=== PATIENT | female | born 1970 | race Caucasian/White ===

== ENCOUNTER 2025-01-31 14:23 | Outpatient (AMB) | payer OTHER, SELFPAY ==
--- NOTE | 2025-01-31 14:25 | HO.NEPHOV ---
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 She is 54 years of age who underwent imaging studies for other reasons picked in left adrenal nodule. She has a diabetic. She has no history of hypertension, hypokalemia, palpitation, flushing , sweating or orthostatic symptoms. She does not have any weight loss, increased pigmentation. She has no family history of any adrenal disorders. She is a smoker but does not have cough, night sweats, hemoptysis or weight loss. She has undergone further imaging studies including MRI of the adrenal. [facility] Medical History (Updated 01/31/25 @ 14:53 by Aftab Oakley MD) Lumbago Positive hepatitis C antibody test Right carpal tunnel syndrome Left carpal tunnel syndrome Pelvic pain Constipation Breast pain, right Migraines Vulvar pruritus Tobacco dependence syndrome Plantar fasciitis Arthritis Obesity DM type 2 with diabetic peripheral neuropathy Asthma Abscess of skin Vitamin D deficiency Surgical History H/O tubal ligation H/O lithotripsy History of colposcopy H/O section Family History Mother Diabetes mellitus Father Diabetes mellitus Coronary artery disease Sister Coronary artery disease Brother Diabetes mellitus Hepatitis C HIV (human immunodeficiency virus infection) Social History (Updated 01/31/25 @ 14:26 by Perla Cool MA) Alcohol intake: never Patient Tobacco Use Status: Current everyday Tobacco user Review of Systems Const All systems reviewed & are unremarkable except as noted in HPI and below Physical Exam Vital Signs: Last Vital Signs Pulse 89 01/31/25 14:28 BP 112/66 01/31/25 14:28 Pulse Ox 97 01/31/25 14:28 Oxygen Delivery Method Room Air 01/31/25 14:28 BMI result Body Mass Index 26.5 Const General: comfortable and no acute distress Orientation/consciousness: patient oriented x3 HEENT Head: Yes normocephalic Mouth: Normal oral and palatal mucosa present Eyes EOM: EOMs intact bilaterally Neck Neck: Yes supple Resp Auscultation: clear to auscultation bilaterally Cardio Jugular venous distension: no JVD Rate: regular rate GI Palpation (GI): Soft to palpation Auscultation: normal bowel sounds General: Yes no CVA tenderness Back/Spine/Pelvis Back: no CVA tenderness Skin General skin exam: no rashes or lesions noted Neuro General: patient oriented x3 and moves all extremities Extrem General: Yes no pedal edema Assessment & Plan Assessment & Plan (1) Adrenal nodule: Code(s): E27.8 - Other specified disorders of adrenal gland Category: Medical Plan Fabiola has adrenal cyst by MRI scan. She does not have any hypertension or hypokalemia. She has no family history of adrenal disorders. I have ordered further blood work and urine studies. She should quit smoking. She may need a endocrine evaluation which I shall arrange based on evolving data. I shall also arrange a follow-up MRI of her adrenal with time. I did not make any medication changes today but discussed all the possibilities and had the opportunity to answer all her questions. Follow-up given. Orders: Orders Catecholamines, Frac., 24Ur Today E27.8 - Other specified disorders of adrenal gland Cortisol Random Today E27.8 - Other specified disorders of adrenal gland Renin Today E27.8 - Other specified disorders of adrenal gland Metanephrines, Plasma Today E27.8 - Other specified disorders of adrenal gland Aldosterone, 24Hr Urine Today E27.8 - Other specified disorders of adrenal gland Cortisol, Free 24Hr Urine Today E27.8 - Other specified disorders of adrenal gland Metanephrines, 24hr Urine Today E27.8 - Other specified disorders of adrenal gland VMA Today E27.8 - Other specified disorders of adrenal gland Aldosterone Today E27.8 - Other specified disorders of adrenal gland Aldost/Renin Today E27.8 - Other specified disorders of adrenal gland Coding Level of Care Code New Pt Level 4 (30295) Diagnoses Adrenal nodule E27.8
[2025-01-31 14:28] VITALS: BP 112/66; PULSE 89; O2SAT 97; BMI 26.5
--- OUTSIDE RECORDS SUMMARY | 2025-01-31 18:42 | XMS_ITS ---
Author Name [facility] Organization Unknown Care Team Organization Name Specialty Phone Email Start Date End Da luis alberto [facility] GERALD SIMONS Primary Care 02/11/2022 11/23/19 24
--- OUTSIDE RECORDS SUMMARY | 2025-01-31 18:42 | XMS_ITS | Clinical Summary ---
Author Organization [facility] Address [address] [place] [address] Care Team Providers Care Risk Compliance Manager Name Role Phone Unavailable Primary Care Provider Unavailabl e Source Comments PLEASE NOTE, if this patient is a minor, it may be UNLAWFUL to discuss sensitive information that is contained in these records (such as FAMILY PLANNING, MENTAL HEALTH or SUBSTANCE ABUSE) with the minor patient's parent or other person without the patient's specific authorization.[facility] Social History Tobacco Use Types Packs/Day Years Used Date Smoking Tobacco: Never Assessed Comments Unknown Sex and Gender Information Value Date Recorded Sex Assigned at Not on file Legal Sex Female 1:07 PM PDT Gender Identity Not on file Sexual Orientation Not on file Plan of Treatment Not on file Insurance [facility]
--- OUTSIDE RECORDS SUMMARY | 2025-01-31 18:42 | XMS_ITS | Clinical Summary ---
Author Organization [address] [facility] Address [address] [place] [address] Phone Care Team Providers Care Grocery Associate Name Role Phone Mc Castro MD Primary Care Provider [phone] Allergies Active Allergy Reactions Criticality Noted Date Comments Iodinated Contrast Media 11/11/2018 Morphine Sulfate 08/06/2011 rash Ondansetron Hcl Low 05/16/2024 Other Reaction(s): itching, burning, redness Medications blood-glucose meter (FREESTYLE LITE METER MISC) 1 Device by Does not apply route 2 times daily. 0 Active elastic bandage bandage Elastic Bandages & Supports (Wrist Splint/Cock-Up /Left M) Misc 1 Units by Does not apply route at bedtime as needed (pain). 1 Active elastic bandage bandage Elastic Bandages & Supports (Wrist Splint/Cock-Up /Right M) Misc 1 Units by Does not apply route at bedtime as needed (pain). 1 Active FREESTYLE LANCETS MISC 1 Stick by In Vitro route 2 times daily. 1 Active blood sugar diagnostic (FreeStyle Lite Strips) test strip 1 Strip by In Vitro route 2 times daily. 1 Active cholecalciferol (Vitamin D3) 50 mcg (2,000 unit) capsule Take 1 capsule (2,000 Units total) by mouth 1 (one) time each day. 30 each 11 5 026 Active dulaglutide (Trulicity) 0.75 mg/0.5 mL pen injector injectionIndicat ions:Diabetes mellitus type 2 in nonobese ([facility] V24, [facility] V28) Inject 0.5 mL (0.75 mg total) under the skin 1 (one) time per week. 15 mL 11 5 Active fluticasone propionate (FLONASE) 50 mcg/actuation nasal sprayIndications :Allergic rhinitis due to pollen 2 SPRAYS BY NASAL ROUTE DAILY. 2 SPRAYS EACH NOSTRIL DAILY NEEDED. 48 mL 1 5 Active albuterol HFA (Ventolin HFA) 90 mcg/actuation inhalerIndicatio ns:Moderate persistent asthma without complication Inhale 2 puffs by mouth every 4 (four) hours if needed for wheezing or shortness of breath. 18 each 3 5 Active cetirizine (ZyrTEC) 10 mg tabletIndication s:Moderate persistent asthma without complication Take 1 tablet (10 mg total) by mouth 1 (one) time each day. 90 each 1 5 026 Active diphenhydrAMINE (BENADRYL) 25 mg capsuleIndicatio ns:Moderate persistent asthma without complication Take 1 capsule (25 mg total) by mouth every 6 (six) hours if needed for itching. 30 capsule 1 5 Active fluticasone propion-salmeter oL (Advair HFA) 230-21 mcg/actuation inhalerIndicatio ns:Moderate persistent asthma without complication Inhale 2 puffs by mouth 2 (two) times a day. 12 each 5 Active buPROPion SR (WELLBUTRIN SR) 150 mg 12 hr tabletIndication s:Tobacco dependence syndrome,Encount er for screening for lung cancer,Encounter for tobacco use cessation counseling TAKE 1 TABLET (150 MG TOTAL) BY MOUTH 2 (TWO) TIMES A DAY. TAKE 1 TAB DAILY FOR THREE DAYS THEN START ON PRESCRIBED DOSE. DO NOT CRUSH, CHEW, OR SPLIT. 180 each 5 025 Active omeprazole (PriLOSEC) [address] capsule Take 1 capsule (20 mg total) by mouth 1 (one) time each day. Do not crush or chew. 30 each 5 5 026 Active cyclobenzaprine (FLEXERIL) 10 mg tablet Take 1 tablet (10 mg total) by mouth 3 (three) times a day if needed for muscle spasms for up to 10 days. 15 tablet 5 025 Discontin ued(Thera py completed ) Active Problems Problem Noted Date Diagnosed Date Other chest pain 01/25/2025 Assessment & Plan (01/25/2025 9:02 AM EDT): The patient has been experiencing episodes of chest discomfort. The patient does have multiple risk factors for the presence of CAD including: Family history of premature CAD, current smoker, and diabetes mellitus type 2 She has been experiencing episodes of chest discomfort for more than 1 year. Usually, her symptoms of chest discomfort occur approximately once a month and last for less than 1 minute per episode. Her chest discomfort symptoms occur at rest and are not induced or worsened by exertion. Nevertheless, for the past 3 weeks, she has had a near constant chest pressure sensation. She refers active symptoms of chest discomfort at the time of the office visit today. EKG was obtained which did not show any evidence of a STEMI. Also, no evidence of SATHYA criteria ([facility] module). Given her active symptoms of chest discomfort, I recommended for the patient to be taken to the emergency room with the use of an ambulance in order to be evaluated in the emergency room and rule out the presence of an acute [place]. However, the patient declined going to the emergency room via ambulance. I explained to the patient the importance of arranging for her to be taken by ambulance in order to assure a safe transport to the emergency room. I explicitly told her that I would not recommend for her to drive herself to the emergency room due to potential risk associated with this. I explained to the patient that she could have worsening chest pain, syncope, or a cardiac arrest if she were to drive herself to the emergency room. Nevertheless, despite this morning, the patient stated that she does not want to use an ambulance to go to the emergency room. She stated that she will go to the [facility] emergency room by herself. As such, the patient signed the AMA form certifying that she refused to be taken to the emergency room by ambulance. I did contact the [facility] emergency room to let them know that the patient will be going there via private car. I instructed the patient to contact our office once her workup in the emergency room is completed in order for us to be able to review the workup that is done and determine if she will need any additional testing. 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 Constipation 02/07/2023 Overview (03/10/2024): Last Assessment & Plan: I strongely encouraged Fabiola to be more aggressive with her bpowel regimen. She was given Rx for Miralax to use daily to titrate to a daily BM. She will also increase her fiber and water intake. Pelvic pain 02/07/2023 Overview (03/10/2024): Last Assessment & Plan: I explained to Fabiola that I suspect her pain is actually related to chronic constipation and that she needs to treat this. Will obtain pelvic US to more completely evaluate Metal Tile Setter organs, but this does not seem to be the source of her pain on exam. Left carpal tunnel syndrome 01/26/2021 Right carpal tunnel syndrome 01/26/2021 Positive hepatitis C antibody test 10/25/2018 Lumbago 08/10/2012 Chronic hepatitis C (CMS/HCC V24, CMS/HCC V28) 0 08/06/2011 Encounters Date Type Department Care Team Description 01/25/2025 8:20 AM EDT Office Visit [facility] [address] [place] [phone] Fredis Echavarria MD Atypical chest pain (Primary Dx); Other chest pain 01/24/2025 Telephone [facility] - [facility] [address] [facility] [address] [place] [phone] Fredis Echavarria MD 01/02/2025 Results Follow-Up Gastroenterology - [address] [facility] [address] [facility] [address] [place] [phone] [facility] [place] 12/26/2024 12:00 PM EDT Office Visit Internal Medicine - [place] [address] [facility] [address] [place] [address] Mc Castro MD Adrenal nodule ([facility] V24) (Primary Dx); Moderate persistent asthma without complication; Chronic gastritis without bleeding, unspecified gastritis type 12/26/2024 Telephone [facility] [address] [facility] [address] [facility] [address] [place] [address] Ellie Burciaga NP 12/13/2024 1:35 PM EDT Anesthesia Event [facility] Endoscopy [address] [place] [address] Dhaval Villafuerte MD Gomes, Sheldon B, MD 12/13/2024 11:50 AM EDT - 12/13/2024 11:59 PM EDT Hospital Encounter [facility] Endoscopy [address] [place] [address] Fe Alvarez DO Chang, Ling, CRNA Spencer, Mark A, MD Epigastric abdominal pain Discharge Disposition: Home or Self Care 12/06/2024 Telephone [facility] [address] [facility] [address] [facility] [address] [place] [address] Fe Alvarez DO from Last 3 Months Immunizations Immunization Administration Dates Next Due Influenza trivalent, MDCK, 0 .5mL, preservative free (Flucelvax) 6mo and older 04/19/2024 Tdap Tetanus diptheria acell ular pertussis (Boostrix; Adacel) 7yo and older 03/31/2024,08/06/2011 Surgical History Surgery Date Site/Laterality Comments SECTION PROCEDURE: [place] DELIVERY ONLY; COMMENT: x2 TUBAL LIGATION 1997 PROCEDURE: HISTORICAL TUBAL LIGATION COLONOSCOPY 11/22/2018 PROCEDURE: HISTORICAL COLONOSCOPY; COMMENT: Visually normal colon and terminal ileum, random biopsies obtained to evaluate chronic diarrhea; path: normal. 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 (CMS/HCC V24, CMS/HCC V28) DX:DM type 2 wit h diabetic peripheral neuropathy (HCC) Tobacco abuse disorder DX:Tobacc o abuse disorder Family History Medical History Relation Name Comments Breast cancer Aunt maternal Ovarian cancer Aunt Alcohol abuse Brother 1 Diabetes Brother 1 Hep C Brother 1 Drug abuse Brother 2 HIV Brother 2 Hep C Brother 2 Coronary artery disease Father Diabetes Father Cataracts Maternal Grandfather Colon cancer Maternal Grandfather Diabetes Mother Blindness Other Glaucoma Paternal Grandmother Coronary artery disease Sister 2 Coronary artery disease Sister 3 Coronary artery disease Sister 4 Colon cancer Uncle 1 Esophageal cancer Uncle 2 Macular degeneration Neg Hx Strabismus Neg Hx Relation Name Status Comments Aunt Brother 1 Alive Brother 2 Father Maternal Grandfather Mother Alive Other Paternal Grandmother Sister 1 Alive Sister 2 Alive Sister 3 Alive Sister 4 Alive Uncle 1 Uncle 2 Social History Tobacco Use Types Packs/Day Years Used Date Smoking Tobacco: Every Day Cigarettes 3 38.8 Started: 1986 Smokeless Tobacco: Never Tobacco Cessation:Ready to Q uit: Not Asked; Counseling Given: Not Answered Comments:Smoking 10 cigs daily Alcohol Use Standard Drinks/Week Comments Not Currently 0 (1 standard drink = 0.6 oz pur e alcohol) Housing Instability Answer Date Recorde d Are you worried that in the next 2 months you may not have stable housing? No 08/23/2024 Food Access & Nutrition Answer Date Rec orded Do you have access to a vari ety of food including fruits and vegetables? Yes 08/23/2024 Health Literacy Answer Date Recorded How often do you need to hav e someone help you when you read instructions, pamphlets, or other written material from your doctor or pharmacy? Never 08/23/2024 Caregiver: How often do you need to have someone help you when you read instructions, pamphlets, or other written material from your doctor or pharmacy? Not on file 08/23/2024 Financial Risk Answer Date Recorded How hard is it for you to pa y for the very basics like food, housing, medical care, and air conditioning / heating? Patient declined 08/23/2024 Transportation Answer Date Recorded Has the lack of transportati on kept you from meetings, work, or from getting things needed for daily living? No Has the lack of transportati on kept you from medical appointments or from getting medications? No 08/23/2024 Social Isolation Answer Date Recorded How often do you feel lonely or isolated from th ose around you? Never 08/23/2024 Food Risk Answer Date Recorded Within the past 12 months we worried whether our food would run out before we got money to buy more. Never true 08/23/2024 Within the past 12 months th e food we bought just didn't last and we didn't have money to get more. Never true 08/23/2024 Dependent Care Answer Date Recorded Do you need help finding or paying for care for your loved ones. For example, child and adolescent therapist or elderly care for an older adult? No 08/23/2024 Education Answer Date Recorded Do you think completing more education or training, like finishing a GED, going to college, or learning a trade, would be helpful for you? N/A 08/23/2024 Employment and Income Answer Date Recor ded During the last four weeks, have you been actively looking for work? No 08/23/2024 Living Situation Answer Date Recorded What is your living situation? Unrecognized valu e 08/23/2024 Interpersonal Safety Answer Date Record ed Physical Abuse Unrecognized value 12/13/2024 Verbal Abuse Unrecognized value 12/13/2024 Comments No Sex and Gender Information Value Date Recorded Sex Assigned at Female 02/16/2024 11:30 AM EST Legal Sex Female 10:12 AM EST Gender Identity Female 02/16/2024 11:30 AM EST Sexual Orientation Straight 02/16/2024 11 :30 AM EST Occupation Industry Job Start Date Job End Date STUDENT Not on file Not on file Not on file Obstetrics History Para Term AB IAB SAB Ectopic Multiple Livin g Live Births 4 4 4 4 4 Date Outcome GA Total Labor Labor/2nd/3rd Weight Sex Type Anes PTL Delfina A1 A5 Name Clin 1991 Term M CS-Un spec Living 1993 Term F Living 1995 Term M Living 1997 Term M CS-Un spec Living Last Filed Vital Signs Vital Sign Reading Time Taken Comments Blood Pressure 110/70 01/25/2025 8:21 AM EDT Pulse 74 12/26/2024 12:04 PM EDT Temperature 36.2 C (97.1 F) 12/13/2024 1:50 PM EDT Respiratory Rate 13 12/13/2024 2:10 PM EDT Oxygen Saturation 97% 01/25/2025 8:21 AM EDT Inhaled Oxygen Concentration - - Weight 59.4 kg (131 lb) 01/25/2025 8:21 AM EDT Height 149.9 cm (4' 11 ) 01/25/2025 8:21 AM EDT Body Mass Index 26.46 01/25/2025 8:21 AM EDT Plan of Treatment Upcoming Encounters Date Type Department Care Team (Late st Contact Info) Description 04/21/2025 11:00 AM EST Office Visit Pulmonology - [place] [address] [facility] [address] [place] [phone] Jenna Spicer, CISCO [address] [place] [phone] 05/26/2025 8:40 AM EST Office Visit [facility] - [facility] [address] [place] [phone] Arpita Soriano NP [address] [place] [address] [place] [phone] 05/30/2025 1:40 PM EST Office Visit Gastroenterology - [address] [facility] [address] [place] [phone] Ellie Burciaga NP [address] [place] [phone] Health Maintenance Due Date Last Done Comments Diabetes: Annual Foot Exam 08/22/1979 Diabetes: Annual Retina Eye Exam 08/22/1979 Hepatitis B Vaccines (1 of 3 - 19+ 3-dose series) 1988 Pneumococcal Vaccine: 50+ Years (1 of 2 - PCV) 1988 RSV Immunization Adult Patients (1 - Risk 50-74 years 1-dose series) 08/22/2019 Zoster Vaccines (1 of 2) 08/22/2019 Diabetes: Annual Urine Albumin-Creatinine Ratio (uACR) 03/20/2022 10/21/2018 COVID-19 Vaccine (3 - 2024-2 6 season) 2024 09/18/2020, 2020 Influenza Vaccine (#1) 2024 04/19/2024 Diabetes: Blood Sugar Contro l Test (HGBA1C) 02/26/2025 08/26/2024, 03/31/2024, 01/20/2023 Social Influencers of Health Screening 08/23/2025 08/23/2024 Diabetes: Annual GFR (Glomerular Filtration Rate) 08/26/2025 08/26/2024, 06/22/2024, 10/02/2022 Lung Cancer Screening (Low Dose CT) 10/04/2025 10/04/2024 Breast Cancer Screening 05/09/2026 05/09/19, 02/25/2023, 12/01/2018 Colorectal Cancer Screening: Colonoscopy 11/22/2028 11/22/2018 Cervical Cancer Screening: HPV 08/10/2029 0 08/10/2024, 01/20/2019 Cholesterol Screening (Lipid Panel) 08/26/2029 08/26/2024, 10/02/2022 DTaP,Tdap,and Td Vaccines (3 - Td or Tdap) 03/31/2034 03/31/2024, 08/06/2011 Hepatitis C Screening Completed 02/05/2023 HIV Screening Completed 08/10/2024, 02/05/2023 Depression Screening Completed 08/23/2024, 06/13/2023 HIB Vaccines Aged Out No longer eligi ble based on patient's age to complete this topic HPV Vaccines Aged Out No longer eligi ble based on patient's age to complete this topic Hepatitis A Vaccines Aged Out No long er eligible based on patient's age to complete this topic IPV Vaccines Aged Out No longer eligi ble based on patient's age to complete this topic MMR Vaccines Aged Out No longer eligi ble based on patient's age to complete this topic Meningococcal ACWY Vaccine Aged Out N o longer eligible based on patient's age to complete this topic Meningococcal B Vaccine Aged Out No l onger eligible based on patient's age to complete this topic RSV Immunization Patients Under 20 months Aged Out No longer eligible b ased on patient's age to complete this topic Varicella Vaccines Aged Out No longer eligible based on patient's age to complete this topic Procedures Procedure Name Priority Date/Time Associated Diagnosis Comments ECG 12-LEAD Routine 01/25/2025 8:32 AM EDT Atypical chest pain EGD Routine 12/13/2024 1:49 PM EDT Epigastric abdominal pain TISSUE EXAM Routine 12/13/2024 1:41 PM EDT Epigastric abdominal pain CT LUNG SCREENING Routine 10/04/2024 10: 45 AM EDT Encounter for screening for malignant neoplasm of respiratory organs Nicotine dependence, cigarettes, uncomplicated COMPREHENSIVE METABOLIC PANEL Routine 08/26/2024 9:17 AM EDT Diabetes mellitus type 2 in nonobese (CMS/HCC V24, CMS/HCC V28) Adrenal nodule (CMS/HCC V24) HEMOGLOBIN A1C Routine 08/26/2024 9:17 AM EDT Diabetes mellitus type 2 in nonobese (CMS/HCC V24, CMS/HCC V28) Adrenal nodule (CMS/HCC V24) LIPID PANEL WITH REFLEX TO DIRECT LDL Routine 08/26/2024 9:17 AM EDT Diabetes mellitus type 2 in nonobese (CMS/HCC V24, CMS/HCC V28) Adrenal nodule (CMS/HCC V24) HIV 1, 2 ANTIBODY, P24 ANTIGEN WITH REFLEX TO DIFFERENTIATION Routine 08/10/2024 3:23 PM EDT Encounter for well woman exam with routine gynecological exam Screen for STD (sexually transmitted disease) HPV WITH REFLEX GENOTYPE Routine 08/10/2024 3:08 PM EDT Encounter for well woman exam with routine gynecological exam Screening for cervical cancer MG MAMMO DIGITAL SCREENING W SHARAD BILAT Routine 05/09/2024 1:38 PM EST Encounter for screening mammogram for breast cancer DEPRESSION SCREENING Routine 06/13/2023 HEPATITIS C SCREENING Routine 02/05/2023 COLONOSCOPY Routine 11/22/2018 URINE ALBUMIN CREATININE RATIO Routine 10/21/2018 from Last 3 Months or Most Recently Relevant to Health Maintenance Results * ECG 12 lead (01/25/2025 8:32 AM EDT) Ventricular Rate ECG 83 BPM GEMUSE Atrial Rate 83 BPM GEMUSE P-R Interval 130 ms GEMUSE QRS Duration 92 ms GEMUSE Q-T Interval 370 ms GEMUSE QTc 434 ms GEMUSE P Wave [place] 73 degrees GEMUSE R [place] 80 degrees GEMUSE T [place] 75 degrees GEMUSE ECG Interpretation Normal sinus rhythm Normal ECG When compared with ECG of 22-JUN-2024 20:16, No significant change was found Confirmed by FREDIS ECHAVARRIA ([id number]) on 01/25/2025 8:55:36 AM GEMUSE 01/25/2025 8:32 AM EDT 01/25/2025 8:55 AM EDT us Fredis Echavarria MD ECG ORDERABLES Final Result GEMUSE * EGD Anesthesia - MAC; SP ENDOSCOPY (12/13/2024 1:49 PM EDT) Anatomical Region Laterality Modality Endoscopy 12/13/2024 1:33 PM EDT Impressions 12/13/2024 1:46 PM EDT - Normal esophagus. - Normal examined duodenum. - Erythematous mucosa in the stomach. Biopsied. Recommendation: - Discharge patient to home. - Resume previous diet. - Continue present medications. - Await pathology results. - Tobacco use: Tobacco cessation was discussed in detail today for 5 minutes. Resources such as behavior changes, medications, where to find motivation discussed. Patient to F/U with PCP to discuss NRTs or pharmacotherapy. 1-800-QUIT (8430) resource introduced to the patient. Patient understands I strongly recommend smoking cessation as soon as possible. Narrative 12/13/2024 1:46 PM EDT [facility] GI Patient Name: Fabiola Patrick Procedure Date: 12/13/2024 1:33 PM Date of : 1970 Age: 54 Gender: Female Note Status: Finalized Attending MD: Fe Alvarez DO, [id number] Procedure Date No Time: 12/13/2024 Procedure: Upper GI endoscopy Indications: Epigastric abdominal pain, Heartburn Providers: Fe Alvraez DO Referring MD: Mc Castro MD Medicines: Monitored Anesthesia Care Complications: No immediate complications. Estimated blood loss: Minimal. Estimated Blood Loss: Estimated blood loss was minimal. Procedure: Pre-Anesthesia Assessment: - - Prior to the procedure, a History and Physical was performed, and patient medications and allergies were reviewed. The patient is competent. The risks and benefits of the procedure and the sedation options and risks were discussed with the patient. All questions were answered and informed consent was obtained. Patient identification and proposed procedure were verified by the physician, the nurse, the anesthesiologist, the battery vent plug inserter and the airframe and powerplant technician in the pre-procedure area in the endoscopy suite. Mental Status Examination: alert and oriented. Airway Examination: normal oropharyngeal airway and neck mobility. Respiratory Examination: clear to auscultation. CV Examination: normal. Prophylactic Antibiotics: The patient does not require prophylactic antibiotics. Prior Anticoagulants: The patient has taken no anticoagulant or antiplatelet agents. ASA Grade Assessment: II - A patient with mild systemic disease. After reviewing the risks and benefits, the patient was deemed in satisfactory condition to undergo the procedure. The anesthesia plan was to use monitored anesthesia care (MAC). Immediately prior to administration of medications, the patient was re-assessed for adequacy to receive sedatives. The heart rate, respiratory rate, oxygen saturations, blood pressure, adequacy of pulmonary ventilation, and response to care were monitored throughout the procedure. The physical status of the patient was re-assessed after the procedure. After obtaining informed consent, the endoscope was passed under direct vision. Throughout the procedure, the patient's blood pressure, pulse, and oxygen saturations were monitored continuously. The Olympus Gastroscope was introduced through the mouth, and advanced to the third part of duodenum. The upper GI endoscopy was accomplished without difficulty. The patient tolerated the procedure well. Findings: The esophagus was normal. The examined duodenum was normal. Diffuse moderately erythematous mucosa without bleeding was found in the stomach. Biopsies were taken with a cold forceps for histology. Estimated blood loss was minimal. Procedure Code(s): --- Professional --- 75040, Esophagogastroduodenoscopy, flexible, transoral; with biopsy, single or multiple 87083, Smoking and tobacco use cessation counseling visit; intermediate, greater than 3 minutes up to 10 minutes Diagnosis Code(s): --- Professional --- K31.89, Other diseases of stomach and duodenum R12, Heartburn R10.13, Epigastric pain CPT copyright 2020 [employer]. All rights reserved. The codes documented in this report are preliminary and upon acetylene torch solderer review may be revised to meet current compliance requirements. FE Alvarez DO 12/13/2024 1:45:59 PM This report has been signed electronically.Fe Alvarez DO Number of Addenda: 0 Note Initiated On: 12/13/2024 1:33 PM Scope In: Scope Out: Endoscopy Department at [facility] - [address] [place] [id number] Procedure Note Fe Alvarez DO - 12/13/2024 [facility] GI Patient Name: Fabiola Patrick Procedure Date: 12/13/2024 1:33 PM Date of : 1970 Age: 54 Gender: Female Note Status: Finalized Attending MD: Fe Alvarez DO, [id number] Procedure Date No Time: 12/13/2024 Procedure: Upper GI endoscopy Indications: Epigastric abdominal pain, Heartburn Providers: Fe Alvarez DO Referring MD: Mc Castro MD Medicines: Monitored Anesthesia Care Complications: No immediate complications. Estimated blood loss: Minimal. Estimated Blood Loss: Estimated blood loss was minimal. Procedure: Pre-Anesthesia Assessment: - - Prior to the procedure, a History and Physicalwas performed, and patient medications and allergieswere reviewed. The patient is competent. The risks and benefits of the procedure and the sedation optionsand risks were discussed with the patient. Allquestions were answered and informed consent was obtained. Patient identification and proposed procedure were verified by the physician, the nurse, the anesthesiologist, the battery vent plug inserter and thetechnician in the pre-procedure area in the endoscopy suite. Mental Status Examination: alert and oriented.Airway Examination: normal oropharyngeal airway and neck mobility. Respiratory Examination: clear to auscultation. CV Examination: normal. Prophylactic Antibiotics: The patient does not requireprophylactic antibiotics. Prior Anticoagulants: The patient has taken no anticoagulant or antiplatelet agents. ASA Grade Assessment: II - A patient with mild systemic disease. After reviewing the risks and benefits,the patient was deemed in satisfactory condition to undergo the procedure. The anesthesia plan was touse monitored anesthesia care (MAC). Immediately priorto administration of medications, the patient was re-assessed for adequacy to receive sedatives. The heart rate, respiratory rate, oxygen saturations, blood pressure, adequacy of pulmonary ventilation,and response to care were monitored throughout the procedure. The physical status of the patient was re-assessed after the procedure. After obtaining informed consent, the endoscope was passed under direct vision. Throughout theprocedure, the patient's blood pressure, pulse, and oxygen saturations were monitored continuously. TheOlympus Gastroscope was introduced through the mouth, and advanced to the third part of duodenum. The upperGI endoscopy was accomplished without difficulty. The patient tolerated the procedure well. Findings: The esophagus was normal. The examined duodenum was normal. Diffuse moderately erythematous mucosa without bleeding was found in the stomach. Biopsies weretaken with a cold forceps for histology. Estimated blood loss was minimal. Procedure Code(s): --- Professional --- 86245, Esophagogastroduodenoscopy, flexible, transoral; with biopsy, single or multiple 52919, Smoking and tobacco use cessation counseling visit; intermediate, greater than 3 minutes up to10 minutes Diagnosis Code(s): --- Professional --- K31.89, Other diseases of stomach and duodenum R12, Heartburn R10.13, Epigastric pain CPT copyright 2021 [employer]. All rights reserved. The codes documented in this report are preliminary and upon acetylene torch solderer reviewmay be revised to meet current compliance requirements. FE Alvarze DO 12/13/2024 1:45:59 PM This report has been signed electronically.Fe Alvarez DO Number of Addenda: 0 Note Initiated On: 12/13/2024 1:33 PM Scope In: Scope Out: Endoscopy Department at [facility] - [address] [place] [id number] IMPRESSION: - Normal esophagus. - Normal examined duodenum. - Erythematous mucosa in the stomach. Biopsied. Recommendation: - Discharge patient to home. - Resume previous diet. - Continue present medications. - Await pathology results. - Tobacco use: Tobacco cessation was discussed in detail today for 5 minutes. Resources such asbehavior changes, medications, where to find motivation discussed. Patient to F/U with PCP to discuss NRTsor pharmacotherapy. [phone] ([phone]) resourceintroduced to the patient. Patient understands I strongly recommend smoking cessation as soon as possible. us Fe Alvarez DO GI~PROCEDURE ORDERABLES Final Re sult * Tissue exam (12/13/2024 1:41 PM EDT) Final Diagnosis Stomach, random sites, biopsy: - Gastric antral- and oxyntic-type mucosa with focal surface epithelial denudation and erosion and associated chronic inflammation including occasional basilar and rare superficial clusters of small lymphocytes. - Foci of vascular congestion are also noted. - No active gastritis and no intestinal metaplasia identified. - No Helicobacter pylori identified on hematoxylin and eosin stained sections. 12/14/2024 12:03 PM EDT [facility] Gross Description A. Stomach, random gastric biopsies: Labeled random ga stomach . Received in formalin are five soft, salinas-pink to red tissue fragments ranging from 0.15 cm to 0.5 cm in greatest diameter, which are wrapped in paper and submitted in toto in one cassette, five pieces, multiple levels. TS 12/14/2024 12:03 PM EDT [facility] Disclaimer Unless otherwise specified, all tissue is 10% NB formalin fixed and paraffin embedded. 12/14/2024 12:03 PM EDT [facility] Tissue Stomach structure / Unknown 12/13/2024 1:41 PM EDT 12/13/2024 2:44 PM EDT us Fe Alvarez DO LAB PATHOLOGY ORDERABLES Final R esult [facility] ([facility]) [facility] [address] [place] [address], [place] [phone] * CT Lung Screening (10/04/2024 10:45 AM EDT) Anatomical Region Laterality Modality Chest Computed Tomogra phy 10/04/2024 11:2 4 AM EDT Impressions 10/04/2024 11:35 AM EDT There is no suspicious pulmonary mass or nodule. 0.4 cm nodule in the inferior lingula is unchanged since at least May 2024. This can be monitored at the time of annual lung cancer screening. Known left adrenal mass. LUNG RADS: Lung-RADS 2: BENIGN S Modifier (Significant or Potentially Significant Findings): None present No suspicious nonpulmonary findings. RECOMMENDATIONS: 12 month screening low dose CT -------- FINAL REPORT -------- Dictated By: Mj Alberts Dictated Date: 10/04/2024 11:24 ET Assigned Physician: Mj Alberts Reviewed and Electronically Signed By: Mj Alberts Signed Date: 10/04/2024 11:35 ET Workstation ID: [id number] Transcribed By: Self Edit Transcribed Date: 10/04/2024 11:24 ET Narrative 10/04/2024 11:35 AM EDT EXAMINATION: CT CHEST WITHOUT CONTRAST LUNG CANCER SCREENING, LOW DOSE CLINICAL INFORMATION: Lung cancer screening. Current smoker. COMPARISON: None TECHNIQUE: Multidetector CT. Examination of the chest. Examination of the chest without IV contrast. Reformatting in the coronal and sagittal planes. Device: [employer] DLP: 156 mGy-cm CTDI: 4.89 Dose optimization was performed including the use of low-dose iterative reconstruction technique with automatic exposure control based on patient size. Type of contrast: None Volume of IV contrast: None Volume of contrast discarded: 0 mL FINDINGS: LUNG: No suspicious abnormality of the trachea or mainstem bronchi. There is bronchiectasis and/or bronchiolectasis with some airway thickening. LUNG NODULES: There is a solid nodule in the inferior lingula 10/04/24-0.4 cm (3/150) 05/25/24-0.4 cm (2/3) Calcified granuloma in the right middle lobe. OTHER PULMONARY: There is some centrilobular emphysema. There is no honeycomb formation. There is no acute pneumonia. MEDIASTINUM: There are calcified mediastinal and right hilar lymph nodes consistent with prior granulomatous disease. No suspicious mediastinal or hilar mass. No suspicious abnormality the esophagus. CARDIAC: The heart is not enlarged. No pericardial fluid or thickening There are mild coronary calcifications. VASCULAR: There is no thoracic aortic aneurysm. The main pulmonary artery is normal caliber PLEURA: There is no pleural fluid or pneumothorax AXILLA/CHEST WALL: There are no enlarged axillary lymph nodes. No chest wall mass demonstrated. VISUALIZED UPPER ABDOMEN: No suspicious abnormality on limited assessment of the visualized upper abdomen. Circumscribed oval low attenuating 3.6 cm left adrenal mass. This has been previously evaluated with CT and MRI. This has increased in size when compared to 2015. MUSCULOSKELETAL: No suspicious focal bony lesion demonstrated. Procedure Note Mj Alberts MD - 10/04/2024 EXAMINATION: CT CHEST WITHOUT CONTRAST LUNG CANCER SCREENING, LOW DOSE CLINICAL INFORMATION: Lung cancer screening. Current smoker. COMPARISON: None TECHNIQUE: Multidetector CT. Examination of the chest. Examination of the chest without IV contrast. Reformatting in the coronal and sagittal planes. Device: [facility] DLP: 156 mGy-cm CTDI: 4.89 Dose optimization was performed including the use of low-dose iterativereconstruction technique with automatic exposure control based on patientsize. Type of contrast: None Volume of IV contrast: None Volume of contrast discarded: 0 mL FINDINGS: LUNG: No suspicious abnormality of the trachea or mainstem bronchi. Thereis bronchiectasis and/or bronchiolectasis with some airway thickening. LUNG NODULES: There is a solid nodule in the inferior lingula 10/04/24-0.4 cm (3/150) 2-0.4 cm (2/3) Calcified granuloma in the right middle lobe. OTHER PULMONARY: There is some centrilobular emphysema. There is nohoneycomb formation. There is no acute pneumonia. MEDIASTINUM: There are calcified mediastinal and right hilar lymph nodesconsistent with prior granulomatous disease. No suspicious mediastinal orhilar mass. No suspicious abnormality the esophagus. CARDIAC: The heart is not enlarged. No pericardial fluid or thickening There are mild coronary calcifications. VASCULAR: There is no thoracic aortic aneurysm. The main pulmonary arteryis normal caliber PLEURA: There is no pleural fluid or pneumothorax AXILLA/CHEST WALL: There are no enlarged axillary lymph nodes. No chestwall mass demonstrated. VISUALIZED UPPER ABDOMEN: No suspicious abnormality on limited assessmentof the visualized upper abdomen. Circumscribed oval low attenuating 3.6 cm left adrenal mass. This has beenpreviously evaluated with CT and MRI. This has increased in size whencompared to 2015. MUSCULOSKELETAL: No suspicious focal bony lesion demonstrated. IMPRESSION: There is no suspicious pulmonary mass or nodule. 0.4 cm nodule in the inferior lingula is unchanged since at least May2024. This can be monitored at the time of annual lung cancer screening. Known left adrenal mass. LUNG RADS: Lung-RADS 2: BENIGN S Modifier (Significant or Potentially Significant Findings): Nonepresent No suspicious nonpulmonary findings. RECOMMENDATIONS: 12 month screening low dose CT -------- FINAL REPORT -------- Dictated By: Mj Alberts Dictated Date: 10/04/2024 11:24 ET Assigned Physician: Mj Alberts Reviewed and Electronically Signed By: Mj Alberts Signed Date: 10/04/2024 11:35 ET Workstation ID: [id number] Transcribed By: Self Edit Transcribed Date: 10/04/2024 11:24 ET us Jose Armando Marshall MD [facility] [place]ED[place] Final Result * Lipid panel with reflex to direct LDL (08/26/2024 9:17 AM EDT) Cholesterol 159 0 - 200 mg/dL LAB CHEMISTRY METHOD 08/26/2024 4:31 PM EDT [facility] Triglycerides 116 0 - 150 mg/dL LAB CHEMISTRY METHOD 08/26/2024 4:31 PM EDT [facility] HDL 49 >=40 mg/dL LAB CHEMISTRY METHOD 08/26/2024 4:31 PM EDT [facility] LDL Calculated 87 0 - 100 mg/dL LAB CHEMISTRY METHOD 08/26/2024 4:31 PM EDT [facility] VLDL Cholesterol Antonio 23.2 mg/dL LAB CHEMISTRY METHOD 08/26/2024 4:31 PM EDT [facility] Non HDL Chol. (LDL+VLDL) 110 <145 mg/dL LAB CHEMISTRY METHOD 08/26/2024 4:31 PM EDT [facility] Chol/HDL Ratio 3.2 0.0 - 4.4 LAB CHEMISTRY METHOD 08/26/2024 4:31 PM EDT [facility] Blood Venous blood specimen / Unknown Venipuncture / Unknown 08/26/2024 9:17 AM EDT 08/26/2024 9:17 AM EDT us Mc Castro MD LAB BLOOD ORDERABLES Final Resul t [facility] [address] [place] [address], * Hemoglobin A1c (08/26/2024 9:17 AM EDT) Hemoglobin A1C 6.4 <6.5 % LAB CHEMISTRY METHOD 08/27/2024 1:28 PM EDT [facility] Mean Bld Glu Estim. 137 mg/dL LAB CHEMISTRY METHOD 08/27/2024 1:28 PM EDT [facility] Blood Venous blood specimen / Unknown Venipuncture / Unknown 08/26/2024 9:17 AM EDT 08/26/2024 9:17 AM EDT us Mc Castro MD LAB BLOOD ORDERABLES Final Resul t [facility] [address] [place] [address], * (ABNORMAL) Comprehensive metabolic panel (08/26/2024 9:17 AM EDT) Sodium 139 133 - 145 mmol/L LAB CHEMISTRY METHOD 08/26/2024 4:31 PM [facility] Potassium 4.2 3.5 - 5.5 mmol/L LAB CHEMISTRY METHOD 08/26/2024 4:31 PM [facility] Chloride 106 96 - 110 mmol/L LAB CHEMISTRY METHOD 08/26/2024 4:31 PM [facility] CO2 26 21 - 32 mmol/L LAB CHEMISTRY METHOD 08/26/2024 4:31 PM [facility] Anion Gap 7 3 - 11 LAB CHEMISTRY METHOD 08/26/2024 4:31 PM [facility] Glucose 135(H) 70 - 100 mg/dL LAB CHEMISTRY METHOD 08/26/2024 4:31 PM [facility] BUN 25 5 - 25 mg/dL LAB CHEMISTRY METHOD 08/26/2024 4:31 PM [facility] Creatinine 0.58 0.50 - 1.10 mg/dL LAB CHEMISTRY METHOD 08/26/2024 4:31 PM [facility] eGFR 107 >=60 mL/min/1. 73m2 LAB CHEMISTRY METHOD 08/26/2024 4:31 PM [facility] Comment:Calculation based on the Chronic Kidney Disease Epidemiology Collaboration (CKD-EPI) equation refit without adjustment for race. BUN/Creatinine Ratio 43.1 LAB CHEMISTRY METHOD 08/26/2024 4:31 PM [facility] Calcium 9.4 8.5 - 10.5 mg/dL LAB CHEMISTRY METHOD 08/26/2024 4:31 PM EDT [facility] AST (SGOT) 9(L) 10 - 42 unit/L LAB CHEMISTRY METHOD 08/26/2024 4:31 PM EDT [facility] ALT (SGPT) 19 10 - 60 unit/L LAB CHEMISTRY METHOD 08/26/2024 4:31 PM EDT [facility] Alkaline Phosphatase 100 42 - 121 unit/L LAB CHEMISTRY METHOD 08/26/2024 4:31 PM EDT [facility] Total Protein 7.1 6.0 - 8.0 g/dL LAB CHEMISTRY METHOD 08/26/2024 4:31 PM EDT [facility] Albumin 4.0 3.2 - 5.0 g/dL LAB CHEMISTRY METHOD 08/26/2024 4:31 PM EDT [facility] Total Bilirubin 0.5 0.0 - 1.4 mg/dL LAB CHEMISTRY METHOD 08/26/2024 4:31 PM EDT [facility] Blood Venous blood specimen / Unknown Venipuncture / Unknown 08/26/2024 9:17 AM EDT 08/26/2024 9:17 AM EDT Mc Castro MD LAB BLOOD ORDERABLES Final Resul t [facility] [address] [place] [address], * HIV 1,2 antibody, p24 antigen with reflex to differentiation (08/10/2024 3:23 PM EDT) HIV Combo AB/AG Negative Negative LAB CHEMISTRY METHOD 08/10/2024 5:58 PM EDT [facility] Blood Venous blood specimen / Unknown Venipuncture / Unknown 08/10/2024 3:23 PM EDT 08/10/2024 4:10 PM EDT Narrative [facility] - 08/10/2024 5:58 PM EDT This assay is a 4th generation assay allowing for earlier detection of HIV infection by detecting the presence of the HIV-1 p24 antigen as well as the traditional antibodies to HIV type 1 (including group O) and type 2. Use of a 4th generation assay is the current CDC recommendation for HIV screening. Kate Scales [facility] BLOOD ORDERABLES Final Re sult Performing Organization Address City/[facility]/ZIP Co de Phone Number [facility] [address] [place] [address], [place] [phone] * HPV with reflex genotype (08/10/2024 3:08 PM EDT) HPV Negative Negative LAB MICROBIOLOGY METHOD 08/12/2024 8:52 AM EDT [facility] Brushing/Spatula Cervix uteri structure / Unknown 08/10/2024 3:08 PM EDT 08/11/2024 7:27 AM EDT [facility] MOLECULAR DIAGNOSTICS ORD ERABLES Final Result Performing Organization Address [facility] Co de Phone Number [facility] [address] [place] [id number], [place] [phone] * MG Mammo Digital Screening w Sharad bilat (05/09/2024 1:38 PM EST) Anatomical Region Laterality Modality Breast Bilateral Mammography 05/10/2024 11:4 1 AM EST Impressions 05/10/2024 11:42 AM EST No evidence of breast malignancy. BI-RADS CATEGORY: 1 - NEGATIVE RECOMMENDATION: Screening bilateral mammogram is recommended in 1 year. Mammo Location: [facility], [address] [place] [address], [id number], . -------- FINAL REPORT -------- Dictated By: Jesica Larson Dictated Date: 05/10/2024 11:41 ET Assigned Physician: Jesica Larson Reviewed and Electronically Signed By: Jesica Larson Signed Date: 05/10/2024 11:42 ET Workstation ID: [id number] Transcribed By: Self Edit Transcribed Date: 05/10/2024 11:41 ET Narrative 05/10/2024 11:42 AM EST CLINICAL: 53 years old, Female, routine annual exam. COMPARISON: 12/01/2018 TECHNIQUE: Bilateral MLO and CC views were obtained digitally with 3-D mammogram (digital breast tomosynthesis). Computer-aided detection was utilized in evaluation of this exam (CAD). FINDINGS: There is no evidence of suspicious mass or architectural distortion. No worrisome calcifications are evident. There has been no significant change from prior exam(s). BREAST DENSITY: B - There are scattered areas of fibroglandular density. Procedure Note Jesica Larson MD - 05/10/2024 CLINICAL: 53 years old, Female, routine annual exam. COMPARISON: 12/01/2018 TECHNIQUE: Bilateral MLO and CC views were obtained digitally with 3-Dmammogram (digital breast tomosynthesis). Computer-aided detection wasutilized in evaluation of this exam (CAD). FINDINGS: There is no evidence of suspicious mass or architectural distortion. Noworrisome calcifications are evident. There has been no significantchange from prior exam(s). BREAST DENSITY: B - There are scattered areas of fibroglandular density. IMPRESSION: No evidence of breast malignancy. BI-RADS CATEGORY: 1 - NEGATIVE RECOMMENDATION: Screening bilateral mammogram is recommended in 1 year. Mammo Location: [facility], [address] [place] [address], [id number], . -------- FINAL REPORT -------- Dictated By: Jesica Larson Dictated Date: 05/10/2024 11:41 ET Assigned Physician: Jesica Larson Reviewed and Electronically Signed By: Jesica Larson Signed Date: 05/10/2024 11:42 ET Workstation ID: [id number] Transcribed By: Self Edit Transcribed Date: 05/10/2024 11:41 ET us Self Referral Sppl IMG BI PROCEDURES Final Resul t * Hm Depression Screening (06/13/2023) Depression Screening abstracted Historical Provider HEALTH MAINTENANCE Final Result * Hepatitis C Screening (02/05/2023) Pathologist [facility] Hepatitis C Screening abstracted [facility] Provider HEALTH MAINTENANCE Final Result * Colonoscopy (11/22/2018) Pathologist [facility] Colonoscopy no interpretation , abstracted Anatomical Region Laterality Modality Other [facility] Provider HEALTH MAINTENANCE Final Result * Urine Albumin Creatinine Ratio (10/21/2018) Pathologist [facility] Urine Albumin Creatinine Ratio abstracted [facility] Provider HEALTH MAINTENANCE Final Result from Last 3 Months or Most Recently Relevant to Health Maintenance Insurance [facility] Care Teams Grocery Associate Relationship Specialty Start Date End Date Mc Castro MD [address] [address] PCP - General Internal Medicine 05/05/24
--- OUTSIDE RECORDS SUMMARY | 2025-01-31 18:42 | XMS_ITS | Patient Health Record ---
Author Organization [facility] Allan loni Cordova Address [address] [place] [address] Care Team Providers Care Infection Control Manager Name Role Phone Craon Pena MD Primary Care Provider Jennifer Askew Unavailable [phone] Allergies Allergen (clinical drug ingredient) Drug/Non Drug Allergy documented on EMR Reaction Allergy Type Onset Date Status Iodinated contrast media (substance) iodinated contrast media (uncoded) Unknown Allergy Active morphine Morphine Unknown Drug Allergy Active Reason For Referral No Information Medications Medication SIG (Take, Route, Frequency, Duration) Notes Start Date End Date Status metFORMIN HCl 750 mg extended release 24 hr Once a day Active ProAir HFA 108 (90 Base) MCG/ACT 1-2 puffs as needed Inhalation Active Night Splint AFO - L1930 as directed 10/04/2015 Active Physical Therapy 3-4x per week for 3- 4 weeks 10/04/2015 Active Social History Tobacco Use: Social History Observation Description Date Details (start date - stop date) Current Smoker NA - NA Tobacco Use/Smoking Question Answer Notes Are you a: current smoker How often do you smoke cigarettes? every day Alcohol Screen Question Answer Notes Did you have a drink contain ing alcohol in the past year? Yes How often did you have a dri nk containing alcohol in the past year? Monthly or less (1 point) Points 1 Interpretation Negative Problems Problem Type SNOMED Code ICD Code Onset Dates Problem Status W/U Status Risk Notes Problem Type II diabetes mellitus without complication (714711468) Type 2 diabetes mellitus without complications (E11.9) Active confirmed Plan Of Treatment No Information Insurance Providers Payer Name Payer Address Payer Phone Subscriber Number Group Number Insured Name Patient Relationship to Insured Coverage Start Date Coverage End Date [facility] [id number] [address] [address] [place] [phone] [id number] Fabiola Patrick Self - patient is the insured Medical (General) History Medical History History ICD Code Allergic rhinitis Arthritis asthma Back,Hip,and Knee pain Urinary tract infections Diabetic Hepatitis C Hematuria Hypertension Kidney stones mal[place]ise Headaches Surgical History Surgery Date(Month/Year) tubal ligation section kidney stones
--- OUTSIDE RECORDS SUMMARY | 2025-01-31 18:42 | XMS_ITS | Encounter Summary ---
Author Organization [facility] [place] [address] Care Team Providers Care Register Of Wills Name Role Phone Mc Castro MD Primary Care Provider [phone] Encounter Details Date Type Department Care Team (Late st Contact Info) Description 01/02/2025 Results Follow-Up Gastroenterology - [address] [place] [address] [facility] Social History Tobacco Use Types Packs/Day Years Used Date Smoking Tobacco: Every Day Cigarettes 3 38.8 Started: 1986 Smokeless Tobacco: Never Comments:Smoking 10 cigs renny ly Alcohol Use Standard Drinks/Week Comments Not Currently [...] care for your loved ones. For example, childcare teacher or elderly care for an older adult? [...] file Not on file Not on file documented as of this encounter Plan of Treatment Upcoming Encounters Date Type Department Care Team (Late st Contact Info) Description 04/21/2025 11:00 AM EST Office Visit Pulmonology - [place] [address] [facility] [address] [place] [address] Jenna Spicer NP [address] [place] [address] 05/26/2025 8:40 AM EST Office Visit [facility] - [address] [place] [address] Arpita Soriano NP [address] [facility] [address] [place] [phone] 05/30/2025 1:40 PM EST Office Visit Gastroenterology - [address] [facility] [address] [place] [address] Ellie Burciaga NP [address] [place] [phone] documented as of this encounter Visit Diagnoses Not on filedocumented in this encounter Additional Health Concerns Assessment Noted Time PHQ-9 Depression Total Score: 1 08/24/19 6:32 PM EDT documented as of this encounter Care Teams Register Of Wills Relationship Specialty Start Date End Date Mc Castro MD [address] [facility] [address] [place] [address] PCP - General Internal Medicine 05/05/24 documented as of this encounter
== END 2025-01-31 14:58 | disposition home or self-care (01) ==
LOC: HO.HKAS 14:23
PROVIDERS: PCP Internal Medicine; Referring Provider Internal Medicine; Visit Provider Internal Medicine Nephrology
DX: E27.8 Other specified disorders of adrenal gland (principal)
CPT/HCPCS: 99204

== ENCOUNTER 2025-01-31 14:23 | Outpatient (REF) | payer OTHER, SELFPAY | END 2025-01-31 14:24 | disposition home or self-care (01) | LOC: HO.HKASLDS 14:23 | PROVIDERS: PCP Internal Medicine; Referring Provider Internal Medicine; Visit Provider Internal Medicine Nephrology | DX: E27.8 Other specified disorders of adrenal gland (principal) | CPT/HCPCS: 99202 ==

== ENCOUNTER 2025-02-02 13:32 | Outpatient (REF) | payer OTHER, SELFPAY ==
--- OUTSIDE RECORDS SUMMARY | 2025-02-02 16:34 | XMS_ITS | Clinical Summary ---
Author Organization 175 [facility] Address [address] [place] [address] Phone Care Team Providers Care Commercial Solar Sales Consultant Name Role Phone Mc Castro MD Primary Care Provider [phone] Allergies Active Allergy Reactions Criticality Noted Date [...] injectionIndicat ions:Diabetes mellitus type 2 in nonobese ([facility] V24, [facility] V28) Inject 0.5 mL (0.75 [...] STEMI. Also, no evidence of SATHYA criteria ([facility] module). Given her active symptoms of chest discomfort, I recommended for the patient to be taken to the emergency room with the use of an ambulance in order to be evaluated in the emergency room and rule out the presence of an acute MS. However, the patient declined going to the [...] stated that she will go to the [facility] emergency room by herself. As such, the patient signed the AMA form certifying that she refused to be taken to the emergency room by ambulance. I did contact the [facility] emergency room to let them know that [...] obtain pelvic US to more completely evaluate [employer]ace Room organs, but this does not seem to be the source of her pain on exam. Left carpal tunnel syndrome 01/26/2021 Right carpal tunnel syndrome 01/26/2021 Positive hepatitis C antibody test 10/25/2018 Lumbago 08/10/2012 Chronic hepatitis C (CMS/HCC V24, CMS/HCC V28) 0 08/06/2011 Encounters Date Type Department Care Team Description 01/25/2025 8:20 AM EDT Office Visit [facility] [address] [place] [phone] Fredis Echavarria MD Atypical chest pain (Primary Dx); Other chest pain 01/24/2025 Telephone [facility] - [facility] [address] [facility] [address] [place] [phone] Fredis Echavarria MD 01/02/2025 Results Follow-Up Gastroenterology - [address] [facility] [address] [facility] [address] [place] [phone] [facility] [place] [place] 12/26/2024 12:00 PM EDT Office Visit Internal Medicine - [facility] 175 [facility] 200 [place] [address] Mc Castro MD Adrenal nodule ([facility] V24) (Primary Dx); Moderate persistent asthma without complication; Chronic gastritis without bleeding, unspecified gastritis type 12/26/2024 Telephone Gastroenterology [facility] [address] [facility] [address] [facility] [address] [place] [address] Ellie Burciaga NP 12/13/2024 1:35 PM EDT Anesthesia Event [facility] Endoscopy [address] [place] [address] Dhaval Villafuerte MD Gomes, Sheldon B, MD 12/13/2024 11:50 AM EDT - 12/13/2024 11:59 PM EDT Hospital Encounter [facility] [address] [place] [address] Fe Alvarez DO Chang, Ling, CRNA Spencer, Mark A, MD Epigastric abdominal pain Discharge Disposition: Home or Self Care 12/06/2024 Telephone Gastroenterology [facility] [address] [facility] [address] [place] [address] Fe Alvarez DO from Last 3 Months Immunizations Immunization Administration Dates Next Due Influenza trivalent, MDCK, 0 .5mL, preservative free (Flucelvax) 6mo and older 04/19/2024 Tdap Tetanus diptheria acell ular pertussis (Boostrix; Adacel) 7yo and older 03/31/2024,08/06/2011 Surgical History Surgery Date Site/Laterality Comments SECTION PROCEDURE: [place] DELIVERY ONLY; COMMENT: x2 TUBAL LIGATION 1997 [...] care for your loved ones. For example, rn child or elderly care for an older adult? [...] 11:00 AM EST Office Visit Pulmonology - [place] [address] [facility] [address] [place] [phone] Jenna Spicer, CISCO [address] [place] [phone] 05/26/2025 8:40 AM EST Office Visit [facility] - [facility] [address] [place] [phone] Arpita Soriano NP [address] [place] [address] [place] [phone] 05/30/2025 1:40 PM EST Office Visit Gastroenterology - [address] [place] [phone] Ellie Burciaga NP [address] [place] [phone] Health Maintenance Due Date Last Done Comments [...] GEMUSE QTc 434 ms GEMUSE P Wave [place] 73 degrees GEMUSE R [place] 80 degrees GEMUSE T [place] 75 degrees GEMUSE ECG Interpretation Normal sinus [...] PCP to discuss NRTs or pharmacotherapy. [phone] ([phone]) resource introduced to the patient. Patient understands I strongly recommend smoking cessation as soon as possible. Narrative 12/13/2024 1:46 PM EDT [facility] GI Patient Name: Fabiola Patrick Procedure Date: 12/13/2024 1:33 PM Date of : 1970 Age: 54 Gender: Female Note Status: Finalized Attending MD: Fe Alvarez DO, [id number] Procedure Date No Time: 12/13/2024 Procedure: Upper [...] the physician, the nurse, the anesthesiologist, the grinder and the electronics technician in the pre-procedure area in the [...] was minimal. Procedure Code(s): --- Professional --- 51816, Esophagogastroduodenoscopy, flexible, transoral; with biopsy, single or multiple 00187, Smoking and tobacco use cessation counseling visit; intermediate, greater than 3 minutes up to 10 minutes Diagnosis Code(s): --- Professional --- K31.89, Other diseases of stomach and duodenum R12, Heartburn R10.13, Epigastric pain CPT copyright 2020 [employer]. All rights reserved. The codes documented in this report are preliminary and upon rat breeder review may be revised to meet current compliance requirements. FE Alvarez DO 12/13/2024 1:45:59 PM This report has been signed electronically.Fe Alvarez DO Number of Addenda: 0 Note Initiated On: 12/13/2024 1:33 PM Scope In: Scope Out: Endoscopy Department at [facility] - [address] [place] [phone] Procedure Note Fe Alvarez DO - 12/13/2024 [facility] GI Patient Name: Fabiola Patrick Procedure Date: 12/13/2024 1:33 PM Date of : 1970 Age: 54 Gender: Female Note Status: Finalized Attending MD: Fe Alvarez DO, [id number] Procedure Date No Time: 12/13/2024 Procedure: Upper [...] the physician, the nurse, the anesthesiologist, the grinder and thetechnician in the pre-procedure area in [...] was minimal. Procedure Code(s): --- Professional --- 50132, Esophagogastroduodenoscopy, flexible, transoral; with biopsy, single or multiple 76204, Smoking and tobacco use cessation counseling visit; intermediate, greater than 3 minutes up to10 minutes Diagnosis Code(s): --- Professional --- K31.89, Other diseases of stomach and duodenum R12, Heartburn R10.13, Epigastric pain CPT copyright 2021 [employer]. All rights reserved. The codes documented in this report are preliminary and upon rat breeder reviewmay be revised to meet current compliance requirements. FE Alvarez DO 12/13/2024 1:45:59 PM This report has been signed electronically.Fe Alvarez DO Number of Addenda: 0 Note Initiated On: 12/13/2024 1:33 PM Scope In: Scope Out: Endoscopy Department at [facility] - [address] [place] [phone] IMPRESSION: - Normal esophagus. - Normal examined [...] F/U with PCP to discuss NRTsor pharmacotherapy. [phone] ([phone]) resourceintroduced to the patient. Patient understands I [...] eosin stained sections. 12/14/2024 12:[address] [facility] Gross Description A. Stomach, random gastric biopsies: Labeled random ga stomach . Received in formalin are five soft, salinas-pink to red tissue fragments ranging from 0.15 cm to 0.5 cm in greatest diameter, which are wrapped in paper and submitted in toto in one cassette, five pieces, multiple levels. TS 12/14/2024 12:[address] [facility] Disclaimer Unless otherwise specified, all tissue is 10% NB formalin fixed and paraffin embedded. 12/14/2024 12:[address] [facility] Tissue Stomach structure / Unknown 12/13/2024 1:41 PM EDT 12/13/2024 2:44 PM EDT us Fe Alvarez DO LAB PATHOLOGY ORDERABLES Final R esult [facility] ([facility]) [facility] [address] [place] [address], [place] [phone] * CT Lung Screening (10/04/2024 10:45 AM [...] Signed Date: 10/04/2024 11:35 ET Workstation ID: [id number] Transcribed By: Self Edit Transcribed Date: 10/04/2024 11:24 ET Narrative 10/04/2024 11:35 AM EDT EXAMINATION: CT CHEST WITHOUT CONTRAST LUNG CANCER SCREENING, LOW DOSE CLINICAL INFORMATION: Lung cancer screening. Current smoker. COMPARISON: None TECHNIQUE: Multidetector CT. Examination of the chest. Examination of the chest without IV contrast. Reformatting in the coronal and sagittal planes. Device: Revolution Jessup DLP: 156 mGy-cm CTDI: 4.89 Dose optimization [...] in the coronal and sagittal planes. Device: Sierra Design Automationer DLP: 156 mGy-cm CTDI: 4.89 Dose optimization [...] Signed Date: 10/04/2024 11:35 ET Workstation ID: [id number] Transcribed By: Self Edit Transcribed Date: 10/04/2024 11:24 ET us Jose Armando Marshall MD [facility] CT PROCEDURES Final Result * Lipid panel with reflex to direct LDL (08/26/2024 9:17 AM EDT) Cholesterol 159 0 - 200 mg/dL LAB CHEMISTRY METHOD 08/26/2024 4:[address] [facility] Triglycerides 116 0 - 150 mg/dL LAB CHEMISTRY METHOD 08/26/2024 4:[address] [facility] HDL 49 >=40 mg/dL LAB CHEMISTRY METHOD 08/26/2024 4:[address] [facility] LDL Calculated 87 0 - 100 mg/dL LAB CHEMISTRY METHOD 08/26/2024 4:[address] [facility] VLDL Cholesterol Antonio 23.2 mg/dL LAB CHEMISTRY METHOD 08/26/2024 4:[address] [facility] Non HDL Chol. (LDL+VLDL) 110 <145 mg/dL LAB CHEMISTRY METHOD 08/26/2024 4:[address] [facility] Chol/HDL Ratio 3.2 0.0 - 4.4 LAB CHEMISTRY METHOD 08/26/2024 4:[address] [facility] Blood Venous blood specimen / Unknown Venipuncture / Unknown 08/26/2024 9:17 AM EDT 08/26/2024 9:17 AM EDT us Mc Castro MD LAB BLOOD ORDERABLES Final Resul t [facility] [address] [place] [address], * Hemoglobin A1c (08/26/2024 9:17 AM EDT) Hemoglobin A1C 6.4 <6.5 % LAB CHEMISTRY METHOD 08/27/2024 1:[address] [facility] Mean Bld Glu Estim. 137 mg/dL LAB CHEMISTRY METHOD 08/27/2024 1:[address] [facility] Blood Venous blood specimen / Unknown Venipuncture / Unknown 08/26/2024 9:17 AM EDT 08/26/2024 9:17 AM EDT us Mc Castro MD LAB BLOOD ORDERABLES Final Resul t [facility] [address] [place] [address], * (ABNORMAL) Comprehensive metabolic panel (08/26/2024 9:17 AM EDT) Sodium 139 133 - 145 mmol/L LAB CHEMISTRY METHOD 08/26/2024 4:31 PM [facility] Potassium 4.2 3.5 - 5.5 mmol/L LAB CHEMISTRY METHOD 08/26/2024 4:31 PM [facility] Chloride 106 96 - 110 mmol/L LAB CHEMISTRY METHOD 08/26/2024 4:31 PM [facility] CO2 26 21 - 32 mmol/L LAB CHEMISTRY METHOD 08/26/2024 4:31 PM [facility] Anion Gap 7 3 - 11 LAB CHEMISTRY METHOD 08/26/2024 4:31 PM [facility] Glucose 135(H) 70 - 100 mg/dL LAB CHEMISTRY METHOD 08/26/2024 4:31 PM [facility] BUN 25 5 - 25 mg/dL LAB CHEMISTRY METHOD 08/26/2024 4:31 PM [facility] Creatinine 0.58 0.50 - 1.10 mg/dL LAB CHEMISTRY METHOD 08/26/2024 4:31 PM [facility] eGFR 107 >=60 mL/min/1. 73m2 LAB CHEMISTRY METHOD 08/26/2024 4:31 PM [facility] Comment:Calculation based on the Chronic Kidney Disease Epidemiology Collaboration (CKD-EPI) equation refit without adjustment for race. BUN/Creatinine Ratio 43.1 LAB CHEMISTRY METHOD 08/26/2024 4:31 PM [facility] Calcium 9.4 8.5 - 10.5 mg/dL LAB CHEMISTRY METHOD 08/26/2024 4:[address] [facility] AST (SGOT) 9(L) 10 - 42 unit/L LAB CHEMISTRY METHOD 08/26/2024 4:[address] [facility] ALT (SGPT) 19 10 - 60 unit/L LAB CHEMISTRY METHOD 08/26/2024 4:[address] [facility] Alkaline Phosphatase 100 42 - 121 unit/L LAB CHEMISTRY METHOD 08/26/2024 4:[address] [facility] Total Protein 7.1 6.0 - 8.0 g/dL LAB CHEMISTRY METHOD 08/26/2024 4:[address] [facility] Albumin 4.0 3.2 - 5.0 g/dL LAB CHEMISTRY METHOD 08/26/2024 4:[address] [facility] Total Bilirubin 0.5 0.0 - 1.4 mg/dL LAB CHEMISTRY METHOD 08/26/2024 4:[address] [facility] Blood Venous blood specimen / Unknown Venipuncture / Unknown 08/26/2024 9:17 AM EDT 08/26/2024 9:17 AM EDT Mc Castro MD LAB BLOOD ORDERABLES Final Resul t [facility] [address] [place] [address], * HIV 1,2 antibody, p24 antigen with reflex to differentiation (08/10/2024 3:23 PM EDT) HIV Combo AB/AG Negative Negative LAB CHEMISTRY METHOD 08/10/2024 5:[address] [facility] Blood Venous blood specimen / Unknown Venipuncture / Unknown 08/10/2024 3:23 PM EDT 08/10/2024 4:[address] [facility] - 08/10/2024 5:58 PM EDT This assay is a 4th generation assay allowing for earlier detection of HIV infection by detecting the presence of the HIV-1 p24 antigen as well as the traditional antibodies to HIV type 1 (including group O) and type 2. Use of a 4th generation assay is the current CDC recommendation for HIV screening. Kate Scales [facility] BLOOD ORDERABLES Final Re sult Performing Organization Address City/[facility]/ZIP Co de Phone Number [facility] [address] [place] [address], [place] [phone] * HPV with reflex genotype (08/10/2024 3:08 PM EDT) HPV Negative Negative LAB MICROBIOLOGY METHOD 08/12/2024 8:[address] [facility] Brushing/Spatula Cervix uteri structure / Unknown 08/10/2024 3:08 PM EDT 08/11/2024 7:27 AM EDT [facility] MOLECULAR DIAGNOSTICS ORD ERABLES Final Result Performing Organization Address [facility] Co de Phone Number [facility] [address] [place] [address], [place] [phone] * MG Mammo Digital Screening w Sharad bilat (05/09/2024 1:38 PM EST) Anatomical Region Laterality Modality Breast Bilateral Mammography 05/10/2024 11:4 1 AM EST Impressions 05/10/2024 11:42 AM EST No evidence of breast malignancy. BI-RADS CATEGORY: 1 - NEGATIVE RECOMMENDATION: Screening bilateral mammogram is recommended in 1 year. Mammo Location: [facility], [address] [place] [address], [address], . -------- FINAL REPORT -------- Dictated By: Jesica Larson Dictated Date: 05/10/2024 11:41 ET Assigned Physician: Jesica Larson Reviewed and Electronically Signed By: Jesica Larson Signed Date: 05/10/2024 11:42 ET Workstation ID: [id number] Transcribed By: Self Edit Transcribed Date: 05/10/2024 [...] year. Mammo Location: [facility], [address] [place] [address], [address], . -------- FINAL REPORT -------- Dictated By: Jesica Larson Dictated Date: 05/10/2024 11:41 ET Assigned Physician: Jesica Larson Reviewed and Electronically Signed By: Jesica Larson Signed Date: 05/10/2024 11:42 ET Workstation ID: [id number] Transcribed By: Self Edit Transcribed Date: 05/10/2024 11:41 ET us Self Referral Sppl IMG BI PROCEDURES Final Resul t * Hm Depression Screening (06/13/2023) Depression Screening abstracted Historical Provider HEALTH MAINTENANCE Final Result * Hepatitis C Screening (02/05/2023) Pathologist [facility] Hepatitis C Screening abstracted [facility] Provider HEALTH MAINTENANCE Final Result * Colonoscopy (11/22/2018) Pathologist [facility] Colonoscopy no interpretation , abstracted Anatomical Region Laterality Modality Other [facility] Provider HEALTH MAINTENANCE Final Result * Urine Albumin Creatinine Ratio (10/21/2018) Pathologist [facility] Urine Albumin Creatinine Ratio abstracted [facility] Provider HEALTH MAINTENANCE Final Result from Last 3 Months or Most Recently Relevant to Health Maintenance Insurance [employer] [place] [address] Care Teams Commercial Solar Sales Consultant Relationship Specialty Start Date End Date Mc Castro MD [address] [address] PCP - General Internal Medicine 05/05/24
--- OUTSIDE RECORDS SUMMARY | 2025-02-02 16:34 | XMS_ITS | Encounter Summary ---
Author Organization [facility] [place] [address] Care Team Providers Care Patternmaker Plaster And Plastic Name Role Phone Mc Castro MD Primary Care Provider [phone] Encounter Details Date Type Department Care Team (Late st Contact Info) Description 01/02/2025 Results Follow-Up Gastroenterology - [address] [place] [address] [facility] [place] Social History Tobacco Use Types Packs/Day Years [...] for your loved ones. For example, child support specialist or elderly care for an older adult? [...] 11:00 AM EST Office Visit Pulmonology - [place] [address] [facility] [address] [place] [address] Jenna Spicer NP [address] [place] [address] 05/26/2025 8:40 AM EST Office Visit [facility] - [address] [place] [address] Arpita Soriano NP 2 [facility] [address] [place] [phone] 05/30/2025 1:40 PM EST Office Visit Gastroenterology - [address] [facility] [address] [place] [address] Ellie Burciaga NP [address] [place] [phone] documented as of this encounter Visit Diagnoses Not on filedocumented in this encounter Additional Health Concerns Assessment Noted Time PHQ-9 Depression Total Score: 1 08/24/19 6:32 PM EDT documented as of this encounter Care Teams Patternmaker Plaster And Plastic Relationship Specialty Start Date End Date Mc Castro MD [address] [facility] [address] [place] [address] PCP - General Internal Medicine 05/05/24 documented as of this encounter
--- OUTSIDE RECORDS SUMMARY | 2025-02-02 16:34 | XMS_ITS | Clinical Summary ---
Author Organization [facility] Address [address] [place] [address] Care Team Providers Care Gripper Installer Name Role Phone Unavailable Primary Care Provider [...] Plan of Treatment Not on file Insurance [facility]
--- OUTSIDE RECORDS SUMMARY | 2025-02-02 16:34 | XMS_ITS | Patient Health Record ---
Author Organization [facility] [place] Address [address] [place] [address] Care Team Providers Care Retarder Operator Name Role Phone Caron Pena MD Primary Care Provider Jennifer Askew Unavailable [phone] Allergies Allergen (clinical drug ingredient) Drug/Non Drug [...] Problem Type II diabetes mellitus without complication (274791804) Type 2 diabetes mellitus without complications (E11.9) Active confirmed Plan Of Treatment No Information Insurance Providers Payer Name Payer Address Payer Phone Subscriber Number Group Number Insured Name Patient Relationship to Insured Coverage Start Date Coverage End Date [facility] re-[address] [address] [address] [place] [phone] [id number] Fabiola Patrick Self - patient is the insured Medical (General) History Medical History History ICD Code Allergic rhinitis Arthritis asthma Back,Hip,and Knee pain Urinary tract infections Diabetic Hepatitis C Hematuria Hypertension Kidney stones malaise Headaches Surgical History Surgery Date(Month/Year) tubal ligation section kidney stones
[2025-02-09 06:08] LABS: Metanephrine, Free 39 pg/mL (<=57); Normetanephrines, Free 62 pg/mL (<=148); Total Metanephrine, Free 101 pg/mL (<=205)
[2025-02-09 21:14] LABS: Total Volume, 24 Hr Urine 1300 mL
[2025-02-10 13:54] LABS: Metanephrine, Free 24U 169 mcg/24 h (90-315); Normetanephrine, Free 24U 338 mcg/24 h (122-676); Total Metanephrine, Free 24U 507 mcg/24 h (224-832); Total Volume 24U 1300 mL
[2025-02-17 08:20] LABS: CATF-24Ur Creatinine 1.15
[2025-02-17 08:21] LABS: Catecholamines,Tot. (E+NE) 24U 75; Dopamine, 24 Ur 283; Epinephrine, 24 Ur 12; Norepinephrine, 24 Ur 63
[2025-02-17 08:22] LABS: CATF, 24 Ur Volume 1300
[2025-02-20 11:06] LABS: Creatinine, 24U 1.13; Vanillymandelic Acid 3.6
[2025-02-20 11:07] LABS: Creatinine 24Hr Urine 1.16; Total Volume 1300
[2025-02-20 11:08] LABS: Aldosterone, 24Hr Urine 3.2
[2025-02-24 16:04] LABS: Plasma Renin Activity 1.04 ng/mL/h (0.25-5.82)
== END 2025-02-02 13:33 | disposition home or self-care (01) ==
LOC: HO.HKASLDS 13:32
PROVIDERS: PCP Internal Medicine; Visit Provider Internal Medicine Nephrology
DX: E27.8 Other specified disorders of adrenal gland (principal)
CPT/HCPCS: 36415; 82088; 82384; 82530; 82533; 83835; 84244; 84585